=== PATIENT | female | born 1980 | race Caucasian/White ===

== ENCOUNTER 2019-01-14 17:24 | Emergency (ER) | payer MEDICAID ==
[~2019-01-14] VITALS: Ht 172.7 cm; Wt 67.7 kg
[~2019-01-14 17:24] MED LIST: DIAZ-351 PO; DIAZ5TAB PO; IBUP-1986 PO; ONDA4TAB6 PO; OXYC-134 PO
[2019-01-14 18:20] VITALS: BP 136/99
== END 2019-01-14 18:21 | disposition home or self-care (01) ==
LOC: ER 17:24
DX: J06.9 Acute upper respiratory infection, unspecified (principal); R21 Rash and other nonspecific skin eruption; H53.143 Visual discomfort, bilateral; H57.89 Other specified disorders of eye and adnexa; Z98.84 Bariatric surgery status; Z88.8 Allergy status to other drugs, medicaments and biological substances; Z79.899 Other long term (current) drug therapy
CPT/HCPCS: 99281